=== PATIENT | male | born 1950 | race African-American/Black ===

== ENCOUNTER → 2019-01-13 | Outpatient (CLI) | payer OTHER, BC ==
[~2019-01-13] MED LIST: ACETAMINOPHEN325 M1 PO; ADVAIR 500-501 EACH IH; ADVAIR 500-501 EACH INH; ALBUTEROL INHAL17 GM IH; AMBIEN CR 6.26.25 MG PO; ATHLETIC FOOT C30 GM TP; AUGMENTIN 875875 MG PO; CARDIZEM CD240 MG PO; CEFTIN500 MG PO; COMBIVENT INH; COUMADIN 2.5MG2.5 M1 PO; COUMADIN 5 MG TA5 M1 PO; DILTIAZEM 24HR240 MG PO; DILTIAZEM ER240 MG PO; DULERA 100 MCG/13 GM INH; FLUCONAZOLE PO; GLUCOTROL5 MG PO; HYDROCHLOROTHIA25 M1 PO; LEVOXYL75 MCG PO; LIPITOR 20 MG T20 M1 PO; LIPITOR20 MG PO; LISINOPRIL5 MG PO; LOVENOX SUBQ; METAXALONE800 MG PO; METFORMIN HCL500 MG PO; METOCLOPRAMIDE10 MG PO; NASONEX17 GM NS; NEURONTIN 300300 M1 PO; NORCO 5-325 TA1 EACH PO; OMEPRAZOLE 20 M20 MG PO; OMEPRAZOLE20 M2 PO; OMEPRAZOLE20 MG PO; OXYCODONE HCL5 M1 PO; PHENERGAN 25 MG25 MG PO; PREDNISONE 5 MG5 M1 PO; PRINIVIL5 MG PO; PROAIR HFA8.5 GM INH; PROMETHEGAN25 MG PO; SINGULAIR 10 MG10 MG PO; SKELAXIN 800 M800 M1 PO; TRAMADOL 50 MG50 MG PO; TRIMETHOBENZAM300 M1 PO; XARELTO15 MG PO; XOLAIR150 MG IM; XOPENEX0.31 MG/3 IH; ZOFRAN4 MG PO; ZOLPIDEM TART12.5 MG PO; ZYRTEC 10 MG TA10 MG PO; ZYRTEC10 M2 PO; [UNRECOGNIZED DRUG - CODE] PO
== END ==
LOC: ULTRA 12:38
DX: M79.661 Pain in right lower leg (principal)

== ENCOUNTER 2019-02-19 19:27 | Inpatient (IN) | payer OTHER, BC ==
[~2019-02-19] VITALS: Ht 180.3 cm; Wt 103.9 kg
[2019-02-19 19:27] VITALS: BP 117/64
[2019-02-19 20:04] LABS: ABSOLUTE NEUTROPHILS 8.9 thou/uL (1.4-8.2); BASOPHILS 0.2 % (0.0-2.0); EOSINOPHILS 0.1 % (0.0-3.0); HEMOGLOBIN 13.3 gm/dL (14.0-18.0); MCH 30.1 pg (26.0-34.0); MCHC 33.3 g/dL (28.0-37.0); MCV 90.4 fL (80.0-100.0); MONOCYTES 2.4 % (1.0-8.0); PLATELET COUNT 225 thou/uL (150-400); POLYS 89.3 % (36.0-66.0); RBC 4.42 mil/uL (4.50-6.00); RDW 14.3 % (10.5-14.5)
[2019-02-19 20:15] LABS: CALCIUM 9.1 mg/dL (8.5-10.1); CREATININE 1.8 mg/dL (0.7-1.3); POTASSIUM 4.4 mmol/L (3.5-5.1)
[2019-02-19 20:31] LABS: ALBUMIN 3.2 g/dL (3.4-5.0); DIRECT BILIRUBIN 0.1 mg/dL (<0.1-0.3); TOTAL BILIRUBIN 0.5 mg/dL (<0.1-1.0); TOTAL PROTEIN 6.8 g/dL (6.4-8.2)
[2019-02-19 21:52] LABS: URINE BILIRUBIN NEGATIVE (Negative); URINE BLOOD NEGATIVE (Negative); URINE CLARITY CLEAR; URINE COLOR YELLOW; URINE GLUCOSE-RANDOM* NEGATIVE (Negative); URINE KETONES NEGATIVE (Negative); URINE LEUKOCYTES-REFLEX NEGATIVE (Negative); URINE NITRITE-REFLEX NEGATIVE (Negative); URINE PROTEIN (DIPSTICK) TRACE (Negative)
[2019-02-20] VITALS (73 sets, daily range): BP systolic 28–166; BP diastolic 13–80
--- NOTE | 2019-02-20 01:10 | NUR ---
68 Y/O PT OF DR GROVER ADMITTED TO ICU FROM ER WITH DX OF SEPSIS AND PNEUMONIA. AWAKE AND ALERT. LUNGS DIMINISHED AND SLIGHTLY COARSE BILAT. MONITOR SHOWS SINUS TACH. RATE 101. HYPOTENSIVE. WILL CONT TO MONITOR.
--- NOTE | 2019-02-20 01:45 | NUR ---
DR MONTOYA CALLED FOR ORDERS NS BOLUS GIVEN LAB ORDERED.
--- NOTE | 2019-02-20 02:45 | NUR ---
LEVOPHED GTT STARTED WILL TITRATE TO KEEP MAP AT 60. PT IS DROUSY AROUSES EASILY. KIRBY PLACED DARK MAILE URINE OBTAINED. WILL CONT TO MONITOR.
[2019-02-20 05:26] LABS: HEMATOCRIT 34.5 % (42.0-52.0); HEMOGLOBIN 11.4 gm/dL (14.0-18.0); MCH 30.1 pg (26.0-34.0); MCV 91.1 fL (80.0-100.0); RBC 3.79 mil/uL (4.50-6.00); RDW 14.4 % (10.5-14.5); WBC 11.3 thou/uL (4.0-11.0)
[2019-02-20 05:36] LABS: CALCIUM 7.9 mg/dL (8.5-10.1); CREATININE 2.4 mg/dL (0.7-1.3)
[2019-02-20 05:38] LABS: POTASSIUM 3.4 mmol/L (3.5-5.1)
--- NOTE | 2019-02-20 06:00 | NUR ---
PT AWAKE AND ALERT NEURO INTACT. TITRATING LEVOPHED AND VASOPRESSIN TO KEEP MAP OF 60. LEVO 27 MCG VASO 0.04 UNITS. PT HAS INCREASED DYSPNEA LUNGS COARSE RHONCHI BILAT 15 L HF NC. [address] CC UO THIS SHIFT. DR DOMINGUEZ PAGED. WILL CONT TO MONITOR
--- NOTE | 2019-02-20 07:30 | NUR ---
DR MONTOYA HERE. PT IS HAVING INCREASED SOA STAT ABG CXRAY AND PT ORDERED DR PRESLEY CONSULTED. LEVOPHED 27 MCG AND VASO MAXED AT 0.04 UNITS. WILL CONT TO MONITOR CLOSELY.
[2019-02-20 08:10] LABS: HCO3 16.7 mmol/L (22.0-26.0); PCO2 28.8 mmHg (35.0-45.0); pH 7.382 (7.360-7.450); sO2 92.2 % (92.0-98.0)
[2019-02-20 08:18] LABS: INR 1.6
--- NOTE | 2019-02-20 12:33 | NUR ---
VAT CONSULTED FOR A PICC FOR SEPSIS FOR THIS PT. A 5FRTLPICC PLACED RUABASILIC. TIP AT THE CAJ PER CXR. PLEASE SEE INSERTION DOC FOR DETAILS
[2019-02-20 12:46] LABS: MAGNESIUM 1.9 mg/dL (1.8-2.4)
[2019-02-20 12:52] LABS: POTASSIUM 4.9 mmol/L (3.5-5.1)
--- NOTE | 2019-02-20 14:28 | EKG ---
[address] [place] [address] ELECTROCARDIOGRAM REPORT Name: JESUS QUEZADA Bharath Room #: 239-P ADM IN M.R.#: [id number] ������������������ Admission: 02/19/19 ������������������ Attend Phys: Mansoor Guardado MD Discharge: ������������������ Date of : 54 Report #: [id number] ����������������������������������������������������������������� [id number] THIS REPORT FOR: //name// [facility] ED Test Date: 2019-02-19 Test Time: 19:33:41 Pat Name: JESUS QUEZADA Department: Room: 239 P Gender: M [employer] Operator: [place] : 1950 Requested By: Bridger Yip Order Number: [id number] MD: Jose Ramon Monteiro Measurements Intervals [place] Rate: 103 P: -40 PA: 182 QRS: -57 QRSD: 86 T: 29 QT: 375 QTc: 491 Interpretive Statements Sinus tachycardia Inferior infarct, old Poor R wave progression Compared to ECG 06/18/2014 09:52:03 Inferior Q waves are more prominent Electronically Signed On 02-20-2019 14:27:53 CDT by Jose Ramon Monteiro [email or web address] ��������������������������������������������� <ELECTRONICALLY SIGNED> ���������������������������������������� By: Jose Ramon Monteiro MD, [facility] ��������������������������������������������� 02/20/19 142 32 32 Jose Ramon Monteiro MD, [facility] /EPI
--- NOTE | 2019-02-20 18:19 | NUR ---
PATIENT ALERT AND ORIENTED X4, NO COMPLAINTS OF PAIN. ON 15 HIGHFLOW NASAL CANNULA WITH MEALS, PATIENT PLACED BACK ON BIPAP. KIRBY PATENT AND DRAINING. IV MEDICATION FOR BLOOD PRESSURE SUPPORT. PATIENT MAINTAINED A MAP >60. SINUS RHYTHM ON MEAL ATTENDANT. PLAN OF CARE DISCUSSED WITH PATIENT AND FAMILY. NO SIGNS OF ACUTE DISTRESS NOTED AT THIS TIME. WILL CONTINUE TO MONITOR.
[2019-02-21] VITALS (37 sets, daily range): BP systolic 94–140; BP diastolic 62–90
--- NOTE | 2019-02-21 06:00 | NUR ---
PT HAS SLEPT MOST OF NOCT. SBP 119/80 LEVO GTT titrated to 4 mcg. remains on vaso gtt at 0.04 units. 1300 cc uo this shift. lungs diminished. o2 sat 98 % on 5 l HFNC. SINUS RHYTHM DENIES PAIN NOR SOA. WILL CONT TO MONITOR.
[2019-02-21 06:15] LABS: HEMATOCRIT 35.2 % (42.0-52.0); HEMOGLOBIN 11.4 gm/dL (14.0-18.0); MCH 29.6 pg (26.0-34.0); MCHC 32.3 g/dL (28.0-37.0); MCV 91.7 fL (80.0-100.0); RBC 3.83 mil/uL (4.50-6.00); RDW 15.1 % (10.5-14.5)
[2019-02-21 06:25] LABS: WBC 27.4 thou/uL (4.0-11.0)
[2019-02-21 06:42] LABS: CALCIUM 8.4 mg/dL (8.5-10.1); CREATININE 1.4 mg/dL (0.7-1.3); POTASSIUM 4.9 mmol/L (3.5-5.1)
--- NOTE | 2019-02-21 09:05 | NUR ---
Assess for consult received for pt with diabetes. Admit with sepsis, hypotension, pneumonia. BG 105-214, requires ss insulin due to steroids, and pt cannot have usual metformin at this time. Respiratory status improving, no wt hx, but presents well nourished. Assess for nutrition education needs once transferred out of ICU and at more appropriate time. Low nutrition risk
--- NOTE | 2019-02-21 17:45 | NUR ---
met with patient who is A/Ox4 admits with COPD exacerbation with asthma component. Patient lives alone in apt 3rd floor but has an elevator. he is retired. He has siblings who are all supportive. Patient has inhalers and nebulizers at home. Independent with adls travel pta. He does not wear oxygen at home. PCP Dr Guardado. He sees Dr Rosario for pulmonary. He has apt with Dr Rosario on thu to receive "shots" for his asthma. Patient reports he is very weak. Therapy evals in process.
[2019-02-22] VITALS (7 sets, daily range): BP systolic 114–126; BP diastolic 74–80
[2019-02-22 05:37] LABS: HEMATOCRIT 31.9 % (42.0-52.0); HEMOGLOBIN 10.4 gm/dL (14.0-18.0); MCH 29.6 pg (26.0-34.0); MCHC 32.5 g/dL (28.0-37.0); RBC 3.51 mil/uL (4.50-6.00); RDW 14.5 % (10.5-14.5); WBC 29.9 thou/uL (4.0-11.0)
[2019-02-22 05:50] LABS: CALCIUM 8.6 mg/dL (8.5-10.1); CREATININE 1.4 mg/dL (0.7-1.3); POTASSIUM 4.1 mmol/L (3.5-5.1); TOTAL BILIRUBIN 0.4 mg/dL (<0.1-1.0); TOTAL PROTEIN 5.9 g/dL (6.4-8.2)
--- NOTE | 2019-02-22 18:36 | NUR ---
PT TRANSFERED TO 432 FROM ICU. A&OX4, AMBULATES WITH STAND BY ASSIST. O2@3L PER NC. TL PICC INTACT IN SILVERIO. ORIENTED PT TO ROOM/ CALL LIGHT. INSULIN GIVEN WITH DINNER. WILL CONT POC.
[2019-02-23 03:55] VITALS: BP 139/89
--- NOTE | 2019-02-23 06:24 | NUR ---
PT IS ALERT AND ORIENTED. HE IS ON /NC. SOA WITH EXERTION. HAS A PRODUCTIVE COUGH WITH FITZGERALD COLORED SPUTUM. PT HAS 1+EDEMA TO BLE. PT STATES HE FEELS ALOT BETTER. HE GOT UP AND SAT IN THE CHAIR FOR SOME TIME LAST NIGHT.PT HOWEVER LOOKS VERY WEAK.CALLS APPROPRIATELY WITH NEEDS.WILL CONTINUE WITH POC.
[2019-02-23 08:13] VITALS: BP 145/95
--- NOTE | 2019-02-23 11:29 | NUR ---
PATIENT IS CALM, COOPERATIVE, AND PLEASANT. PATIENT IS ALERT AND ORIENTED X3. PATIENT EXPRESSES CONCERN WITH HIS WEAKNESS, COUGH, AND REPORTS SOME ANXIETY. PATIENT DENIED MEDICATION FOR ANXIETY BUT TOOK A LOZENGE FOR HIS COUGH. PATIENT TOOK MEDICATIONS THIS MORNING. PATIENT IS ON 2 L OXYGEN PER NASAL CANNULA. PATIENT IS SCHEDULED FOR DISCHARGE EITHER TODAY OR TOMORROW, BACK TO HOME. FALL RISK PRECAUTIONS ARE IN PLACE, PATIENT IS WEARING SOCKS AND HIS BED IS IN THE LOWEST SETTING. PATIENT UNDERSTANDS THE NEED TO SPACE OUT ACTIVITIES AND TO CONSUME A FULL MEAL IN ORDER TO COMBAT HIS WEAKNESS. PATIENT ATE HALF OF HIS BREAKFAST AND REPORTS THAT HE HAS A VERY SMALL APPETITE. DOCTOR NOTIFIED ABOUT COUGH SPELL AND MESSAGE LEFT. PATIENT UP IN CHAIR RESTING AT PRESENT WITH OXYGEN ON. WILL CONTINUE TO MONITOR.
--- NOTE | 2019-02-23 17:13 | NUR ---
S/W PT AND HE SAYS HIS BROTHER WILL COME STAY WITH HIM FOR A FEW DAYS AT DISCHARGE. PT IS INTERESTED IN HAVING HH FOLLOW-UP AT DC. FOLLOWING TO ASSIST WITH DC PLANNING.
[2019-02-23 18:19] VITALS: BP 141/92
[2019-02-23 20:01] VITALS: BP 136/85
[2019-02-24 00:19] VITALS: BP 132/73
--- NOTE | 2019-02-24 00:38 | NUR ---
ASSESSMENT COMPLETED. PT REPORTS FEELING ALOT BETTER TODAY AND TALKING ABOUT POSSIBLY GOING HOME TOMORROW?PT HAS BEEN ON ROOM AIR-STILL WITH CONGESTED COUGH. BEEN HAVING SOME COUGHING SPELLS. PT GIVEN COUGH SYRUP PRN. AFEBRILE. DENIES PAIN.WILL CONTINUE TO MONITOR THRO SHIFT.
[2019-02-24 04:39] VITALS: BP 129/60
[2019-02-24 07:50] VITALS: BP 125/73
--- NOTE | 2019-02-24 12:21 | NUR ---
PT A&OX4, AMBULATES WITH STANDBY ASSIST. R UA TRIPLE LUMEN PICC INTACT INFUSING ANTIBIOTICS. PLANS ARE TO DC TODAY. WILL CONT POC.
[2019-02-24] MEDS ORDERED: LEVAQUIN 500 M500 M2 PO (12:23)
[2019-02-24] MEDS ORDERED: PREDNISONE 10 M10 MG PO (12:23)
[2019-02-24 13:57] VITALS: BP 125/73
--- NOTE | 2019-02-24 15:21 | NUR ---
DC ORDERS RECEIVED. PICC LINE REMOVED FROM SILVERIO. DC INSTRUCTIONS, SCRIPTS AND F/U APPOINTMENT REVIEWED WITH PT. PT ESCORTED TO MAIN ENTRANCE BY VOLUNTEER.
== END 2019-02-24 16:01 | disposition home or self-care (01) | DRG 871 ==
LOC: ER 19:27 → 4E 23:08 → EROBS 23:08 → ICU 23:08 → 4E 02-22 12:12
PROVIDERS: Emergency Medicine; ADMIT Family Medicine
PROC: 5A09357 Assistance with Respiratory Ventilation, Less than 24 Consecutive Hours, Continuous Positive Airway Pressure (ICD-10-PCS; principal; 2019-02-20)
DX: A41.9 Sepsis, unspecified organism (principal); J96.01 Acute respiratory failure with hypoxia; J18.1 Lobar pneumonia, unspecified organism; R65.21 Severe sepsis with septic shock; N17.9 Acute kidney failure, unspecified; R04.2 Hemoptysis; J44.0 Chronic obstructive pulmonary disease with (acute) lower respiratory infection; E87.6 Hypokalemia; J45.909 Unspecified asthma, uncomplicated; I10 Essential (primary) hypertension; E78.00 Pure hypercholesterolemia, unspecified; K21.9 Gastro-esophageal reflux disease without esophagitis; E03.9 Hypothyroidism, unspecified; E11.9 Type 2 diabetes mellitus without complications; E78.5 Hyperlipidemia, unspecified; D64.9 Anemia, unspecified; I95.9 Hypotension, unspecified; Z86.711 Personal history of pulmonary embolism; Z86.718 Personal history of other venous thrombosis and embolism; Z88.2 Allergy status to sulfonamides; Z79.899 Other long term (current) drug therapy
CPT/HCPCS: 10078; 10783; 27000

== ENCOUNTER → 2019-03-14 | Outpatient (CLI) | payer OTHER, BC ==
[~2019-03-14] MED LIST changes: +LEVAQUIN 500 M500 M2 PO; +PREDNISONE 10 M10 MG PO
== END ==
LOC: RAD 10:32
DX: J18.9 Pneumonia, unspecified organism (principal)

== ENCOUNTER 2019-07-26 20:37 | Emergency (ER) | payer OTHER, BC ==
[~2019-07-26] VITALS: Ht 180.3 cm; Wt 99.3 kg
[2019-07-26] MEDS ORDERED: ZOFRAN ODT4 MG PO (22:32)
[2019-07-26] MEDS ORDERED: FLONASE 0.05%50 MCG NARES (22:32)
[2019-07-26 22:48] VITALS: BP 156/70
== END 2019-07-26 22:48 | disposition home or self-care (01) ==
LOC: ER 20:37
DX: R09.81 Nasal congestion (principal); R11.0 Nausea; I10 Essential (primary) hypertension; E11.9 Type 2 diabetes mellitus without complications; E78.00 Pure hypercholesterolemia, unspecified; E03.9 Hypothyroidism, unspecified; J45.909 Unspecified asthma, uncomplicated; J44.9 Chronic obstructive pulmonary disease, unspecified; K21.9 Gastro-esophageal reflux disease without esophagitis; G43.909 Migraine, unspecified, not intractable, without status migrainosus; Z86.711 Personal history of pulmonary embolism; Z86.718 Personal history of other venous thrombosis and embolism; Z88.2 Allergy status to sulfonamides

== ENCOUNTER → 2020-11-19 | Outpatient (CLI) | payer OTHER, BC ==
[~2020-11-19] MED LIST changes: +ASA81BEC PO; +AZITHROMYCIN 2250 MG PO; +CEFDINIR300 MG PO; +FAMOTIDINE 40 M40 M1 PO; +FLONASE 0.05%50 MCG NARES; +NASACORT10.8 ML NARES; +OMEPRAZOLE 20 M20 M1 PO; -OMEPRAZOLE 20 M20 MG PO; +XARELTO20 MG PO; -XOLAIR150 MG IM; +XOLAIR150 MG SUBQ; +ZOFRAN ODT4 MG PO
== END ==
LOC: CAT 11:28
PROVIDERS: ATTEND Internal Medicine
DX: J98.11 Atelectasis (principal); J18.8 Other pneumonia, unspecified organism; R91.8 Other nonspecific abnormal finding of lung field; N28.1 Cyst of kidney, acquired

== ENCOUNTER 2020-12-16 22:44 | Emergency (ER) | payer OTHER, BC ==
[~2020-12-16] VITALS: Ht 180.3 cm; Wt 93.4 kg
[2020-12-16] MEDS ORDERED: METFORMIN HCL500 M3 PO (23:30)
[2020-12-17 01:17] VITALS: BP 124/74
== END 2020-12-17 01:18 | disposition home or self-care (01) ==
LOC: ER 22:44
DX: R05 Cough (principal); J45.909 Unspecified asthma, uncomplicated; J44.9 Chronic obstructive pulmonary disease, unspecified; I10 Essential (primary) hypertension; E78.00 Pure hypercholesterolemia, unspecified; G43.909 Migraine, unspecified, not intractable, without status migrainosus; K21.9 Gastro-esophageal reflux disease without esophagitis; E03.9 Hypothyroidism, unspecified; E11.9 Type 2 diabetes mellitus without complications; Z86.711 Personal history of pulmonary embolism; Z98.890 Other specified postprocedural states; Z88.2 Allergy status to sulfonamides